=== PATIENT | male | born 1960 | race Caucasian/White ===

== ENCOUNTER 2020-07-17 11:08 | Emergency (ER) | payer OTHER ==
[~2020-07-17] VITALS: Ht 175.3 cm; Wt 145.7 kg
--- NOTE | 2020-07-17 12:10 | NUR ---
PT TO ROOM FROM LOBBY
[2020-07-17] MEDS ORDERED: CYCLOBENZAPRINE 10 MG TABLET ONE (12:16)
[2020-07-17] MEDS ORDERED: HYDROcodone/APAP 5/325 TABLET ONE (12:17)
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
[2020-07-17] MEDS ORDERED: HYDROcodone/APAP 5/325 TABLET PO ONE (12:30)
[2020-07-17] MEDS ORDERED: CYCLOBENZAPRINE 10 MG TABLET PO ONE (12:30)
--- NOTE | 2020-07-17 12:30 | NUR ---
C-COLLAR REMOVED BY DR PLATA 2/2 TO PT STATING THAT THE COLLAR WAS MAKING THE PAIN WORSE.
--- NOTE | 2020-07-17 13:30 | NUR ---
PT RTD FROM CT. PAIN CONTINUES W/O IMPROVEMENT.
[2020-07-17 13:32] VITALS: BP 135/60
[2020-07-17] MEDS ORDERED: HYDR25TA6 PO (13:35)
[2020-07-17] MEDS ORDERED: ATEN25TA PO (13:35)
[2020-07-17] MEDS ORDERED: LANS15CA60 PO (13:35)
--- NOTE | 2020-07-17 14:04 | NUR ---
Patient/Caregiver given discharge instructions and they have confirmed that they understand the instructions. Patient ambulatory with steady gait.
== END 2020-07-17 14:05 | disposition home or self-care (01) ==
LOC: ED 12:00
DX: S16.1XXA Strain of muscle, fascia and tendon at neck level, initial encounter (principal); S09.90XA Unspecified injury of head, initial encounter; I10 Essential (primary) hypertension; V43.52XA Car driver injured in collision with other type car in traffic accident, initial encounter; Y93.89 Activity, other specified; Y92.488 Other paved roadways as the place of occurrence of the external cause; Y99.8 Other external cause status
CPT/HCPCS: 70450; 72125; 99285

== ENCOUNTER → 2020-08-15 | Outpatient (CLI) | payer OTHER ==
[~2020-08-15] MED LIST: ATEN25TA PO; HYDR25TA6 PO; LANS15CA60 PO
== END | disposition home or self-care (01) ==
LOC: CFH 14:59
PROVIDERS: ATTEND Physician Assistant Surgical
DX: M17.12 Unilateral primary osteoarthritis, left knee (principal); M11.262 Other chondrocalcinosis, left knee